=== PATIENT | female | born 1960 | race Caucasian/White ===

== ENCOUNTER → 2017-02-09 | Outpatient (CLI) | payer BC ==
[~2017-02-09] MED LIST: ACTNUNK; ASPCH81; CLTP PO; SIMV20TA2 PO
[2017-02-10 13:30] LABS: CHOLESTEROL/HDL RATIO 4.2
== END | disposition home or self-care (01) ==
LOC: C.LABPBG 11:17
PROVIDERS: ATTEND Family Medicine
DX: Z13.220 Encounter for screening for lipoid disorders (principal)

== ENCOUNTER → 2017-02-09 | Outpatient (CLI) | payer OTHER ==
--- NOTE | 2017-02-09 13:13 | DIAGNOSTIC IMAGING REPORT ---
R KNEE 1 OR 2 VIEWS ROUTINE CLINICAL HISTORY: M25.561 Right knee painM25.469 Knee [id number] pain COMPARISON: None. DISCUSSION: Considerable degenerative change of the medial joint compartment as well as patellofemoral compartment. Mild degenerative changes lateral compartment with moderate osteophytic change from the medial as well as the lateral femoral condyles. No significant joint effusion. No evidence for fracture or dislocation. There is no evidence for soft tissue swelling. IMPRESSION: Considerable degenerative change primarily of the medial and patellofemoral joint compartments. No acute process. The above report was generated using voice recognition software. It may contain grammatical, syntax or spelling errors. Electronically signed by: Blair Long M.D. 02/09/2017 1:11 PM Dictated Date/Time: 02/09/2017 1:11 PM
== END | disposition home or self-care (01) ==
LOC: C.RAD1850 12:58
PROVIDERS: ATTEND Family Medicine
DX: M25.469 Effusion, unspecified knee (principal); M25.561 Pain in right knee; M17.11 Unilateral primary osteoarthritis, right knee

== ENCOUNTER → 2017-03-13 | Outpatient (CLI) | payer OTHER ==
[2017-03-13 12:36] LABS: BASO % 0.4 %; BASO ABS # 0.02 K/uL (0-0.2); EOS % 0.4 %; EOS ABS # 0.02 K/uL (0-0.5); HEMATOCRIT 42.4 % (37-47); HEMOGLOBIN 13.9 g/dL (12.0-16.0); IG# 0.01 K/uL (0.00-0.02); LYMPH % 31.2 %; LYMPH ABS # 1.65 K/uL (1.2-3.4); MEAN CORPUSCULAR HEMOGLOBIN 30.5 pg (25-34); MEAN CORPUSCULAR HGB CONC 32.8 g/dl (32-36); MEAN PLATELET VOLUME 10.3 fL (7.4-10.4); MONO % 5.5 %; MONO ABS # 0.29 K/uL (0.11-0.59); NEUT % 62.3 %; PLATELET COUNT 300 K/uL (130-400); RED CELL DISTRIBUTION WIDTH CV 13.1 % (11.5-14.5); RED CELL DISTRIBUTION WIDTH SD 44.4 fL (36.4-46.3); WHITE BLOOD COUNT 5.29 K/uL (4.8-10.8)
== END | disposition home or self-care (01) ==
LOC: C.LABPBG 10:52
PROVIDERS: ATTEND Family Medicine
DX: R59.0 Localized enlarged lymph nodes (principal)

== ENCOUNTER → 2017-03-20 | Outpatient (CLI) | payer OTHER ==
--- NOTE | 2017-03-20 15:04 | MAMMOGRAPHY REPORT ---
THIS REPORT HAS BEEN AMENDED. BILATERAL DIGITAL SCREENING MAMMOGRAM TOMOSYNTHESIS WITH CAD: 03/20/2017 CLINICAL HISTORY: Routine screening. Patient has no complaints. TECHNIQUE: Breast tomosynthesis in addition to standard 2D mammography was performed. Current study was also evaluated with a Computer Aided Detection (CAD) system. COMPARISON: No prior exams were available for comparison. BREAST COMPOSITION: There are scattered areas of fibroglandular density in both breasts. FINDINGS: No suspicious mass, architectural distortion or cluster of microcalcifications is seen. IMPRESSION: ACR BI-RADS CATEGORY 1: NEGATIVE There is no mammographic evidence of malignancy. Prior outside mammograms are currently being reques brendan and if obtained they will be reviewed, compared to the current exam to assess for any more subtle changes, and an addendum will be made to this report. Otherwise, a 1 year screening mammogram is re commended. The patient will receive written notification of the results. Approximately 10% of breast cancers are not detected with mammography. A negative mammographic report should not delay biopsy if a clinically suggestive mass is present. Beatrice Bruno M.D. ay/:03/20/2017 13:35:35 Double Bottom Driver: Cindy VU(Alfred)(M), [facility] letter sent: Normal 02/14 BI-RADS Code: ACR BI-RADS Category 1: Negative AMENDMENT: 03/22/2017 Beatrice Bruno M.D. Prior outside mammograms from [place] dated 11/25/2008, 12/18/2009, 03/23/2011, 013, 05/30/2013, 06/03/2014 and 05/19/2015 became available for review. There has been no significan t interval change comparing to the prior outside mammograms. No new suspicious masses, calcification s, asymmetries or areas of architectural distortion are identified. Recommend routine screening mamm ography in one year. Amended BI-RADS: ACR BI-RADS Category 1: Negative letter sent: Normal 02/14
== END | disposition home or self-care (01) ==
LOC: C.MAMM 10:42
PROVIDERS: ATTEND Family Medicine
DX: Z12.31 Encounter for screening mammogram for malignant neoplasm of breast (principal); M85.89 Other specified disorders of bone density and structure, multiple sites

== ENCOUNTER 2024-01-23 08:39 | Observation (INO) ==
--- NOTE | 2023-12-27 11:53 | PAT Medication Instructions ---
Medication Instructions Date of Service December 27, 2023 Home Medications Medication Instructions Recorded metronidazole 0.75 % topical cream 1 applic topical DAILY #45 grams 03/31/23 aspirin 81 mg tablet,delayed release 81 mg PO HS calcium carbonate (Calcium 600) 600 mg PO BID cholecalciferol (vitamin D3) 50 mcg (2,000 unit) capsule 2,000 unit PO HS acetaminophen 650 mg tablet,extended release (Tylenol Arthritis Pain) 650 mg PO Q12H PRN Pain metronidazole 0.75 % topical cream 1 applic topical DAILY Azelaic Acid Cream 10 % topical DAILY atorvastatin 10 mg tablet (Lipitor) 10 mg PO HS ASK your prescriber and surgeon aspirin 81 mg tablet,delayed release 81 mg PO HS STOP taking 24 hours before surgery metronidazole 0.75 % topical cream 1 applic topical DAILY Azelaic Acid Cream 10 % topical DAILY DO NOT take the morning of surgery calcium carbonate (Calcium 600) 600 mg PO BID Take morning of surgery With a small sip of water, OTHERWISE NOTHING TO EAT OR DRINK AFTER MIDNIGHT: acetaminophen 650 mg tablet,extended release (Tylenol Arthritis Pain) 650 mg PO Q12H PRN Pain (if needed) Take evening before surgery calcium carbonate (Calcium 600) 600 mg PO BID cholecalciferol (vitamin D3) 50 mcg (2,000 unit) capsule 2,000 unit PO HS acetaminophen 650 mg tablet,extended release (Tylenol Arthritis Pain) 650 mg PO Q12H PRN Pain (if needed) atorvastatin 10 mg tablet (Lipitor) 10 mg PO HS Other Notes If you have any questions please call us at [phone] or [phone] or [phone] or [phone]
--- NOTE | 2024-01-02 09:50 | Anesthesiology Consultation ---
Date of Service January 02, 2024 Assessment & Plan (1) Encounter for pre-operative examination: Chart Review Chart Review: Acceptable Risk for Surgery and Patient seen in Pre Admission Testing Patient anxious about SAB/awareness- does want awareness with surgery if possible Family history of anesthesia issues- maternal 2nd cousin- slow to wake - was in ICU- immediate family had no issues with anesthesia. Specifics unknown when asked about possible pseudocholinesterase deficiency. Discussed with Dr. Funk- can proceed as scheduled - Patient not an ideal OPJ candidate (currently 23 hour obs) (anxiety/FH of blood clots) Per PAT appt on 01/02/24, no recent illness/disease exposures, illness related symptoms, or recent illness/disease positive tests. Will leave to surgeon's discretion if preop Covid testing needed Teaching & Discussion Pre-Anesthesia Teaching/Discussion Notes: Instructed NPO after midnight before surgery,except medications with 15 cc of water. Medication instructions provided according to the PAT guidelines. History Surgery Operation Date: 01/23/24 08:50 Proposed Procedures p Right Total Knee Arthroplasty - Ramon Sims MD Height/Weight Height: 5 ft 6 in Weight: 70.5 kg Allergies Allergy/AdvReac Type Severity Reaction Status Date / Time egg Allergy Intermediate Gastrointestinal Verified 12/26/23 14:37 Upset sulfite Allergy Intermediate Gastrointestinal Verified 12/26/23 14:37 Upset hydrocodone [From Vicodin] Allergy Mild Hives Verified 12/26/23 14:37 erythromycin base AdvReac Mild Gastrointestinal Verified 12/26/23 14:37 Upset seafood Allergy Severe Anaphylaxis Uncoded 12/26/23 14:37 Medications Home Medications Medication Instructions Recorded Confirmed Last Taken aspirin 81 mg tablet,delayed 81 mg PO HS 08/13/18 12/26/23 03/18/19 20:00 release calcium carbonate (Calcium 600) 600 mg PO BID 08/14/18 12/26/23 03/18/19 20:00 cholecalciferol (vitamin D3) 50 2,000 unit PO HS 03/04/19 12/26/23 03/18/19 20:00 mcg (2,000 unit) capsule acetaminophen 650 mg 650 mg PO Q12H PRN Pain 03/21/23 12/26/23 Unknown tablet,extended release (Tylenol Arthritis Pain) metronidazole 0.75 % topical cream 1 applic topical DAILY #45 grams 03/31/23 12/26/23 Unknown Azelaic Acid Cream 10 % topical DAILY 12/26/23 12/26/23 Unknown atorvastatin 10 mg tablet (Lipitor) 10 mg PO HS 12/26/23 12/26/23 Unknown Past Medical History Medical History (Updated 01/03/24 @ 11:02 by Louise Smith PA-C) Anxiety Cataracts, bilateral Diverticular disease no hospitalizations ; no recent flares DJD (degenerative joint disease) Family history of adverse effect to anesthesia maternal 2nd cousin- slow to wake - was in ICU- immediate family had no issues with anesthesia GERD (gastroesophageal reflux disease) well controlled and stable Hx of irritable bowel syndrome pt denies any issues at this time - feels it is more GERD related Hx of migraines ocular Hyperlipidemia Osteoarthritis of right knee Osteoporosis PONV (postoperative nausea and vomiting) Prothrombin gene mutation 81mg aspirin - 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- plans to start Xarelto post op no personal hx of DVT/PE Rosacea PCP monitors Thyroid nodule pcp monitoring - stable in size (biopsied around 2018- benign) Exercise / Class Metabolic Activity II 4-5 Yardwork/Stairs/Walk up hill (one flight of stairs - no chest pain or SOB) Past Family History Family History Sister Breast cancer Mother Hypertension Father Hypertension Family history of diabetes mellitus Grandmother (Maternal) Family history of reaction to anesthesia difficulty waking Family/Other Family history of reaction to anesthesia 1st cousin difficulty waking Past Surgical History Surgical History H/O section x3 History of wisdom tooth extraction Hx of colonoscopy with polypectomy Status post biopsy of thyroid gland benign - pcp monitoring Past Anesthesia History No Hx of Anesthesia Complications (with exception to PONV ) and No Family Hx of Anesthesia Complications (with exception maternal 2nd cousin- slow to wake - was in ICU- immediate family had no issues with anesthesia ) History of PONV History of PONV and Hx of Motion Sickness (mild) Social History Smoking Status: Never smoker Do You Dip or Chew Tobacco: No Hx Alcohol Use: Yes Alcohol type: beer alcohol intake frequency: a few times a month Hx Substance Use: No substance use type: does not use Review of Systems - Cough- several days- post nasal drip. - Hx of snoring- no recent issue with weight loss- no hx of sleep study Patient denies chest pain, shortness of breath, dyspnea on exertion, wheezing, palpitations. No hx of seizures, stroke, MS. No hx of blood clots or blood transfusions Physical Exam Vital Signs VITALS BP 128/72 P 72 TEMP 97.8 SP02 97% RESP 16 Constitutional no acute distress ENMT Mouth: no TMJ clicking Thyromental Distance: > or= 3.5 Finger Breadths (3.5) Mallampati Class: III Crowns to molars Neck neck extension not limited Respiratory normal respiratory effort; no respiratory distress Auscultation: lungs clear to auscultation bilaterally; no wheezes Cardiovascular Rate/Rhythm: regular rate and regular rhythm Heart Sounds: no murmur Vessels: no carotid bruit Musculoskeletal Spine: no pain with cervical ROM Extremities: extremities normal to inspection Psychiatric Orientation: alert Lab Results Anesthesia Preop Results Results Anesthesia Widget: WBC 5.97 K/ul (4.8-10.8) 01/02/24 Hgb 12.5 g/dl (12.0-16.0) 01/02/24 Hct 38.1 % (37.0-47.0) 01/02/24 Plt 286 K/uL (130-400) 01/02/24 Na 138 mmol/L (136-145) 01/02/24 K 4.4 mmol/L (3.5-5.1) 01/02/24 Cl 104 mmol/L (98-107) 01/02/24 CO2 26 mmol/L (21-32) 01/02/24 BUN 14 mg/dl (6-23) 01/02/24 Creat 0.94 mg/dl (0.6-1.2) 01/02/24 Glucose Level 81 mg/dl (70-99(Fasting)) 01/02/24 PT 10.4 Seconds (9.0-12.0) 01/02/24 PTT 26 Seconds (21-31) 01/02/24 INR 1.0 (0.9-1.1) 01/02/24 Blood Type A Positive 01/02/24 Antibody Screen NEGATIVE 01/02/24 Testing Electrocardiogram Date: 01/02/24 Findings: + NSR @ (66bpm) Nonspecific ST and T wave abnormality Chest X-Ray Date: 01/02/24 Findings: + NAD
--- NOTE | 2024-01-20 10:29 | History & Physical Report ---
Date of Service January 20, 2024 Assessment & Plan (1) Degenerative arthritis of knee, bilateral: 63-year-old female with prothrombin gene mutation with advanced bilateral knee DJD right side more symptomatic than the left. She is failed conservative measures and rate have her right knee replaced. Plan for him to take her to the operating do a right total knee replacement but the risks and benefits of this procedure were explained. With her prothrombin gene mutation she is at increased risk of DVT and PE. Will be aggressive as far as anticoagulation starting 24 hours postop with Xarelto. Will do this for 1 month. She is otherwise can be plan on being discharged to home and do home PT for 2 weeks then likely outpatient after that. (2) Hyperlipidemia: (3) Irritable bowel syndrome: (4) Osteoporosis: (5) Prothrombin gene mutation: History of Present Illness Chief Complaint: . Persistent, progressive right knee pain and discomfort. Primary Care Provider: Debby Garcia MD . The patient is a 63-year-old female who we have been following for the past 5 years or so for advanced right knee DJD. She has been through extensive conservative treatment over the years which would become less successful. She has some periods where she has trouble walking due to the severe pain. Describes global pain. The more she is up and on her knee the more it hurts. She is having more bad days and good days. She is ready to have her knee fixed. The patient does have a clotting disorder with prothrombin gene mutation. Will be more aggressive with her anticoagulation and likely using Xarelto for 1 month postop. She denies any history of DVT or PE in the past. Allergies Allergy/AdvReac Type Severity Reaction Status Date / Time egg Allergy Intermediate Gastrointestinal Verified 12/26/23 14:37 Upset sulfite Allergy Intermediate Gastrointestinal Verified 12/26/23 14:37 Upset hydrocodone [From Vicodin] Allergy Mild Hives Verified 12/26/23 14:37 erythromycin base AdvReac Mild Gastrointestinal Verified 12/26/23 14:37 Upset seafood Allergy Severe Anaphylaxis Uncoded 12/26/23 14:37 Home Medications Medication Instructions Recorded Confirmed Type aspirin 81 mg tablet,delayed 81 mg PO HS 08/13/18 12/26/23 History release calcium carbonate (Calcium 600) 600 mg PO BID 08/14/18 12/26/23 History cholecalciferol (vitamin D3) 50 2,000 unit PO HS 03/04/19 12/26/23 History mcg (2,000 unit) capsule acetaminophen 650 mg 650 mg PO Q12H PRN Pain 03/21/23 12/26/23 History tablet,extended release (Tylenol Arthritis Pain) metronidazole 0.75 % topical cream 1 applic topical DAILY #45 grams 03/31/23 12/26/23 Rx Azelaic Acid Cream 10 % topical DAILY 12/26/23 12/26/23 History atorvastatin 10 mg tablet (Lipitor) 10 mg PO HS 12/26/23 12/26/23 History Past Med/Surg History Problem List Encounter for pre-operative examination Degenerative arthritis of knee, bilateral Degenerative disc disease (Chronic) Thyroid nodule (Chronic) Ocular migraine Osteoarthritis of right knee (Chronic) Anxiety (Chronic) Hyperlipidemia (Chronic) Irritable bowel syndrome (Chronic) Osteoporosis (Chronic) Prothrombin gene mutation (Chronic) Rosacea (Chronic) Medical History Family history of adverse effect to anesthesia maternal 2nd cousin- slow to wake - was in ICU- immediate family had no issues with anesthesia PONV (postoperative nausea and vomiting) Diverticular disease no hospitalizations ; no recent flares GERD (gastroesophageal reflux disease) well controlled and stable Cataracts, bilateral Anxiety Thyroid nodule pcp monitoring - stable in size (biopsied around 2018- benign) Prothrombin gene mutation 81mg aspirin - 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- plans to start Xarelto post op no personal hx of DVT/PE Hx of migraines ocular Hx of irritable bowel syndrome pt denies any issues at this time - feels it is more GERD related Osteoporosis Osteoarthritis of right knee Hyperlipidemia DJD (degenerative joint disease) Rosacea PCP monitors Surgical History Hx of colonoscopy with polypectomy History of wisdom tooth extraction Status post biopsy of thyroid gland benign - pcp monitoring H/O section x3 Family History Sister Breast cancer Mother Hypertension Father Hypertension Family history of diabetes mellitus Grandmother (Maternal) Family history of reaction to anesthesia difficulty waking Family/Other Family history of reaction to anesthesia 1st cousin difficulty waking Social History Smoking Status: Never smoker Second Hand Exposure: No; Do You Dip or Chew Tobacco: No; Hx Alcohol Use: Yes Alcohol type: beer Hx Substance Use: No Preferred Language: Trinidadian Communication Ability: Effective Visual Impairment: No Limitations Hearing Ability: Normal Creative Resource Manager Required: No Beliefs That Will Affect Care: None marital status: Current Living Situation: Spouse current occupational status: retired Feels Safe at Home: Yes Dental Care, Regularly: Yes Physical Activity Frequency: Does not Exercise Physical Activity Frequency Comment: d/t knee pain Assistive Devices: Cane and Glasses Review of Systems All systems reviewed & are unremarkable except as noted in HPI & below. Physical Exam . Physical examination was a pleasant healthy middle-aged female. Looks in good health. Examination of the right knee reveal patient ambulates independently. She clearly limps on the right side and is got varus alignment to the knee with a bit of a varus thrust with weightbearing. She has bony hypertrophy medially. Range of motion about 10 degrees short of full extension to 110 degrees of flexion. No particular pain with hip motion. She is neurologically intact. Constitutional WD/WN, vitals as above Respiratory normal respiratory effort, lungs clear to auscultation Cardiovascular RRR, no murmur, no edema Gastrointestinal (Abdomen) normal bowel sounds, soft, nontender, no hepatosplenomegaly Results & Data Results & Data Laboratory Results . Diagnostic Findings . X-rays of the knee were reviewed. Shows advanced medial compartment arthritis. She got complete loss of medial joint space. Because she got osteophytes medially and some fairly large posterior osteophytes as well. She has tricompartment disease. PG Care Time/CCT Total # of Minutes Spent Total Time Spent with Patient: Total time spent is greater than 50% in coordination of care (as documented) at patient's floor/unit and/or counseling patient: Coding Level of Care Code None Diagnoses Degenerative arthritis of knee, bilateral M17.0 Hyperlipidemia E78.5 Irritable bowel syndrome K58.9 Osteoporosis M81.0 Prothrombin gene mutation D68.52
[~2024-01-23 08:39] MED LIST changes: -ACTNUNK; -ASPCH81; -CLTP PO; +ROPIVACAINE 0.5% 5 MG/ML 30 ML VIAL ONE; -SIMV20TA2 PO
--- NOTE | 2024-01-23 09:03 | History & Physical Bridge Note ---
Date of Service January 23, 2024 History & Physical Bridge Note I have examined the patient, reviewed the History & Physical and in the interval since the performance of the History & Physical I have noted the following changes of clinical significance: no changes noted
[2024-01-23] MEDS: ACETAMINOPHEN 500 MG TAB PO SCH ×2 (09:17→14:19)
[2024-01-23] MEDS: CeleBREX 200 MG CAP PO SCH (09:18)
[2024-01-23] MEDS: FAMOTIDINE 20 MG TAB PO SCH (09:19)
[2024-01-23] MEDS: SODIUM CHLORIDE 0.9% 1,000 ML IV SCH (09:19)
[2024-01-23] MEDS: METOCLOPRAMIDE HCL 10 MG TABLET PO SCH (09:19)
[2024-01-23] MEDS ORDERED: LIDOCAINE 2% 2 ML VIAL/AMP(20MG/ML) INFIL ONE (09:49)
[2024-01-23] MEDS ORDERED: PROPOFOL IV EMULSION 10 MG/ML 20 ML VIAL IV ONE ×2 (09:53→12:31)
[2024-01-23] MEDS ORDERED: MIDAZOLAM HCL 1 MG/ML 2ML VIAL ONE ×2 (10:04→12:23)
[2024-01-23] MEDS ORDERED: ePHEDrine sulfate 50 MG/ML AMP IV PRN (10:30)
[2024-01-23] MEDS ORDERED: fentaNYL citrate PF 100 MCG/2 ML VIAL IV PRN (10:30)
[2024-01-23] MEDS ORDERED: ATROPINE SULFATE 0.1 MG/ML 10ML SYR IV PRN (10:30)
[2024-01-23] MEDS ORDERED: ONDANSETRON INJ 2 MG/ML 2 ML VIAL IV PRN ×2 (10:30→14:00)
[2024-01-23] MEDS ORDERED: HYDROmorphone INJ 1 MG/ML SYRINGE IV PRN (10:30)
[2024-01-23] MEDS: ceFAZolin 2000MG 2,000 MG/15 ML SYR IV SCH (11:28)
[2024-01-23] MEDS ORDERED: fentaNYL citrate PF 100 MCG/2 ML VIAL ONE (11:50)
[2024-01-23] MEDS ORDERED: ePHEDrine sulfate 50 MG/5 ML SYR ONE (11:58)
[2024-01-23] MEDS: ORTHO JOINT ANESTHETIC ONE (11:59)
[2024-01-23] MEDS: ROPIV 0.5% 246mg, Ketorolac 30mg, EPINEPHrine 0.5mg in NSS INFIL SCH (12:14)
[2024-01-23] MEDS: TRANEXAMIC ACID 1,000 MG **IV Intra-op IV SCH (12:15)
--- NOTE | 2024-01-23 13:17 | Operative Report ---
PG Post Operative Report Pre & Post Diagnosis Operation Date: 01/23/24 10:40 Pre-Op Diagnosis: Right Knee Degenerative Joint Disease Post-Op Diagnosis: Right Knee Degenerative Joint Disease I identified the patient and participated in the time-out.: Yes Procedure Operation Date: 01/23/24 10:40 Actual Procedures p Right Total Knee Arthroplasty(Right) - Ramon Sims MD Surgeon Ramon Sims MD Gas Or Water Meter Installer Serafin Baez PA-C Estimated Blood Loss 50 Findings Consistent with Post-Op Diagnosis Operative findings were advanced right knee tricompartment DJD. She had grade 4 [id number] disease in all 3 compartments most severe medially. She had osteophytes throughout with large posterior osteophytes. Very stiff knee preoperatively with only about 90 degrees of knee flexion. Specimens Right knee sent for pathology. Anesthesia Type Spinal MAC Complications none Disposition Accompanied Patient To Recovery: No Indications The patient is a 63-year-old female whose had a long history of gradual progres sive increasing right knee pain discomfort. We have been following her for years with injection of the throat became less successful over time. X-rays show severe knee arthritis. She developed progressive stiffness in her knee. She elected proceed with total knee arthroplasty. Description of Procedure Operative implants consist of: 1. Biomet Vanguard size 65 right posterior stabilized femoral component. 2. Biomet size 67 tibial tray. 3. 10 mm posterior Byce polyethylene insert. 4. 31 x 8 all poly patella. The patient was taken the operating, identified, placed on the operating table in the supine position. All conductors were appropriately padded. IV antibiotics fibra anesthesia team. A spinal anesthetic and adductor canal block had been provided in the holding area. A Coates catheter was placed in sterile fashion. Right Tetrick was then placed for the right lower extremity was then prepped and draped in usual sterile fashion. The right leg was elevated exsanguinated with use of an Esmarch and the tourniquet was placed at 300 mmHg. An anterior approach to the right knee was then performed to longitudinal incision centered over the patella. Sharp dissection was carried through subcutaneous tissue down the extensor mechanism. A medial parapatellar arthrotomy incision was made. Some subperiosteal dissection was carried out medially. The fat pad was resected from Neath patella tendon. The lateral patellofemoral ligament was released. Patella subluxate laterally knee was flexed with the osteophytes taken on distal femur. ACL and PCL were then released to the distal femur and the tibia subluxated anteriorly. The external tibial alignment jig was then placed on the anterior face the tibia and adjusted 14 mm medially. Proximal tibial cut was made remove out of millimeter bone from the most efficient aspect medial tibial plateau. The tibia was then sized to a size 67. Attention drawn the femur. The distal femur termed a sharp drop with intramedullary canal was suction. A right 5 degree valgus cutting guide was placed. The distal femoral cutting block was pinned in place. This femoral cut was made take an additional 3 mm of bone off distal femur. The femur was then sized to a size 67.5. The AP cutting block was pinned parallel to the epicondylar axis which was 3 degrees of external rotation. The anterior cut, anterior chamfer, posterior cut, posterior chamfer cuts were made. The box cutting guide was then placed. The 67 have boxcar was extremely loose so we placed a 65 and it fit nicely. The box cut was used to create the defect for the post. The posterior osteophytes were taken off the posterior perspective the femur. The menisci were excised. The trial femoral component was placed. The tibial tray was pinned Maria external rotation and the drill and stem punch used. Defect in proximal tibia for the tibial tray. Knee was then trialed and 10 mm insert fit most appropriately. Attention drawn the patella. The patella was cleaned of all soft tissues. Patella thickness measured 20 mm in thickness was cut down to 13. Was sized to a size 31 patella. The lug holes were drilled for 31 patella. The lateral osteophytes removed. Patella button was placed. Knee was taken through range of motion and the patella tracked nicely with no thumbs test. Attention was then drawn toward placing the permanent components. All trial components were removed. Bone plug was placed into this femur limit blood loss. Double batch Pal[place]os G cement was mixed. Biomet QBInternationalguard size 65 right posterior stabilized femoral component, size 67 tibial tray, a 10 mm posterior Byce polyethylene insert, and a 31 x 8 all poly patella then cemented in place. The knee was brought out into full extension till cement hardened. Final cement check was then performed. The pericapsular tissues were injected with total of 100 cc of Ortho mix. Patient did receive 1 g of tranexamic acid. The tourniquet was then let down for final tourniquet time 54 minutes. Hemostasis assured use electrocautery. Extensor Meclomen closed with combination 1 PDS suture #1 Vicryl suture in a [id number] fashion. Extensor mechanism checked and found to be intact and subcutaneous tissues then closed with 2 Dexon suture in buried interrupted fashion skin was closed skin sis. Leg was then cleaned and dried and sterile dressed with Xeroform, 4 fours, sterile cast padding, Taj bandage were applied. Patient then transferred to the recovery room in stable condition. The patient tolerated procedure well and there were no complications. Serafin Baez, my physician pharmaceutical assistant, was present for the entire procedure. His assistance was essential and required for appropriate patient positioning, prepping and draping, surgical exposure, performing the technical details of the operation, placement the implants, closure of the wound, and placement of the sterile bandage. I attest to the content of the Intraoperative Record and any orders documented therein. Any exceptions are noted below.
--- NOTE | 2024-01-23 13:51 | XRay Report ---
XR knee RT 1 or 2V routine CLINICAL HISTORY: Surgical Post Op TECHNIQUE: 2 views of the right knee were obtained. Comparison: Comparison is made to knee radiographs 02/01/2017 FINDINGS: Patient is status post total knee arthroplasty with expected postsurgical changes including soft tiss ue swelling and subcutaneous emphysema. No periarticular lucency or hardware fracture is seen. IMPRESSION: Expected postoperative appearance status post placement of total knee arthroplasty. ACT 112: Negative or not required by law. Electronically signed by: Antonio Suarez M.D. 01/23/2024 1:49 PM
[2024-01-23] MEDS ORDERED: ALUMINUM/MAGNESIUM SUSP 30 ML UDC PO PRN (14:00)
[2024-01-23] MEDS ORDERED: METOCLOPRAMIDE HCL INJ 5 MG/ML 2 ML VIAL IV PRN (14:00)
[2024-01-23] MEDS ORDERED: bisacodyL 10 MG SUPP PR PRN (14:00)
[2024-01-23] MEDS ORDERED: MAGNESIUM HYDROXIDE SUSP 30 ML UDC PO PRN (14:00)
[2024-01-23] MEDS ORDERED: NALOXONE HCL 0.4 MG/1 ML VIAL/CARP IV PRN (14:00)
[2024-01-23] MEDS ORDERED: HYDROmorphone INJ 0.5 MG/0.5 ML SYR IV PRN (14:00)
[2024-01-23] MEDS: KETOROLAC TROMETHAMINE 15 MG/ML VIAL IV SCH (14:19)
[2024-01-23] MEDS: LR 500ML BOLUS, THEN 15ML/HR IV SCH (15:36)
[2024-01-23] MEDS: LR 60ML/HR IV SCH (15:37)
[2024-01-23] MEDS: ASCORBIC ACID 500 MG TAB PO SCH (16:56)
[2024-01-23] MEDS: TRANEXAMIC ACID / 0.7% NACL 1,000 MG/100 ML BAG IV SCH (18:03)
[2024-01-23] MEDS: ceFAZolin 1000MG 1,000 MG/7.5 ML SYR IV SCH (18:03)
--- NOTE | 2024-01-23 20:31 | Anesthesiology Progress Note ---
Date of Service January 23, 2024 Anesthesia Post Procedure Vital Signs Vital Signs: Temp Pulse Pulse Resp BP Pulse Ox O2 Del Method 01/23/24 19:17 36.5 C 71 16 115/77 99 Room Air 01/23/24 16:54 65 18 115/72 100 Room Air 01/23/24 15:53 36.5 C 64 20 113/68 100 Room Air 01/23/24 14:50 36.7 C 66 20 105/69 100 Room Air 01/23/24 14:17 72 20 106/67 99 Room Air 01/23/24 13:50 36.4 C L 68 18 114/69 100 Room Air 01/23/24 13:40 69 20 117/60 99 Room Air 01/23/24 13:30 36.4 C L 67 14 114/62 98 Room Air 01/23/24 13:20 62 17 120/62 100 Oxymask 01/23/24 13:10 36.7 C 71 15 123/60 100 Oxymask 01/23/24 09:07 36.7 C 73 18 162/78 H 100 Room Air O2 Flow Rate 01/23/24 19:17 01/23/24 16:54 01/23/24 15:53 01/23/24 14:50 01/23/24 14:17 01/23/24 13:50 01/23/24 13:40 01/23/24 13:30 01/23/24 13:20 6 01/23/24 13:10 6 01/23/24 09:07 Transfer of Care Handoff Completed per policy Notes Mental Status: alert / awake / arousable and participated in evaluation Patient Amnestic to Procedure: Yes Nausea / Vomiting: adequately controlled Pain: adequately controlled Airway Patency, RR, SpO2: stable & adequate BP & HR: stable & adequate Hydration State: stable & adequate Neuraxial Anesthesia: was administered and sensory block is resolving Anesthetic Complications: no major complications apparent and Pt Satisfied with anesthetic care
[2024-01-23] MEDS: ASPIRIN 81 MG ECTAB PO SCH (21:00)
[2024-01-23] MEDS: ATORVASTATIN 10 MG TAB PO SCH (21:01)
[2024-01-23] MEDS: CHOLECALCIFEROL 25 MCG (1000 UNITS) TAB PO SCH (21:01)
[2024-01-23] MEDS: DOCUSATE SODIUM 100 MG CAP PO SCH (21:01)
[2024-01-23] MEDS: CALCIUM CARBONATE 1250MG TAB PO SCH (21:01)
[2024-01-23] MEDS: SENNA 8.6 MG TAB PO SCH ×2 (21:01)
[2024-01-24] MEDS: dexAMETHasone 10 MG in SYRINGE 0 ML IV SCH (07:25)
[2024-01-24] MEDS: MULTIVITAMIN TAB PO SCH (07:26)
[2024-01-24 07:51] LABS: Hematocrit (blood only) 31.3 % (37.0-47.0); Hemoglobin 10.2 g/dl (12.0-16.0); Mean Corpuscular Hemoglobin 30.4 pg (25.0-34.0); Mean Corpuscular Hgb Conc 32.6 g/dL (32.0-36.0); Mean Corpuscular Volume 93.2 fL (80.0-100.0); Mean Platelet Volume 9.7 fL (9.4-12.4); Platelet Count 232 K/uL (130-400); RDW Standard Deviation 44.2 fL (36.4-46.3); Red Blood Count 3.36 M/uL (4.20-5.40); White Blood Count 5.78 K/ul (4.8-10.8)
[2024-01-24 08:35] LABS: Calcium 9.1 mg/dl (8.6-10.3); Potassium 4.1 mmol/L (3.5-5.1)
[2024-01-24 08:41] LABS: BUN Creatinine Ratio 18.8 (10-20); Creatinine Clr Calc Pharmacy 61.8 ml/min
[2024-01-24] MEDS: oxyCODONE HCL IR 5 MG TAB (IMMEDIATE RELEASE) PO PRN (09:25)
--- NOTE | 2024-01-24 10:43 | Orthopedic Progress Note ---
Date of Service January 24, 2024 Assessment & Plan (1) Status post right knee replacement: Plan: 63-year-old female postop day 1 from right knee replacement. She does have an underlying prothrombin gene issue and therefore increased risk of thrombosis. Will going to start her on Xarelto 24 hours postop prophylactically to prevent thrombosis. Her pain is controlled. She is neurologically intact. Plan: 1. DVT prophylaxis including thigh-high teds, SCDs, Xarelto to start 24 hours postop. 2. PT/OT. Weight-bear as tolerated right total knee protocol. 3. Pain control doing okay with current pain regimen. 4. Disposition plan is to discharge her to home with some home health after therapy today. (2) Prothrombin gene mutation: Admission and Anticipated Discharge Date Admission Date: January 23, 2024 Subjective 63-year-old female postop day 1 from a right knee replacement. She is doing pretty well. Pains been controlled. Had a pretty good night. No chest pain or shortness of breath. Not feeling dizzy or lightheaded. Hoping to go home today. Physical Exam Physical Exam: Physical examination is a pleasant middle-aged female. As she is lying in bed looks quite comfortable. Examination of the right leg reveals leg to be well aligned. Dressings clean dry and intact. She can dorsiflex and plantarflex her foot appropriately. She is neurologically intact. Respiratory: normal respiratory effort, lungs clear to auscultation Cardiovascular: RRR, no murmur, no edema Gastrointestinal (Abdomen): normal bowel sounds, soft, nontender, no hepatosplenomegaly Results & Data Vital Signs (Past 12 Hours) Vital Signs Temp Pulse Pulse Resp BP BP Pulse Ox 01/24/24 07:53 36.7 C 66 12 146/77 H 100 01/24/24 02:04 36.5 C 57 L 20 114/70 91 01/23/24 23:02 36.6 C 66 16 126/87 99 O2 Del Method 01/24/24 07:53 Room Air 01/24/24 02:04 Room Air 01/23/24 23:02 Room Air Laboratory Results Hemoglobin is 10.2. Hematocrit is 31.3. Electrolytes are stable.
[2024-01-24] MEDS: RIVAROXABAN 10 MG TABLET PO SCH (12:02)
--- NOTE | 2024-01-26 07:43 | Discharge Summary ---
Date of Service January 26, 2024 Admission HPI (Per Admitting) . The patient is a 63-year-old female who we have been following for the past 5 years or so for advanced right knee DJD. She has been through extensive conservative treatment over the years which would become less successful. She has some periods where she has trouble walking due to the severe pain. Describes global pain. The more she is up and on her knee the more it hurts. She is having more bad days and good days. She is ready to have her knee fixed. The patient does have a clotting disorder with prothrombin gene mutation. Will be more aggressive with her anticoagulation and likely using Xarelto for 1 month postop. She denies any history of DVT or PE in the past. Admission Exam (Per Admitting) . Physical examination was a pleasant healthy middle-aged female. Looks in good health. Examination of the right knee reveal patient ambulates independently. She clearly limps on the right side and is got varus alignment to the knee with a bit of a varus thrust with weightbearing. She has bony hypertrophy medially. Range of motion about 10 degrees short of full extension to 110 degrees of flexion. No particular pain with hip motion. She is neurologically intact. Principal Diagnosis Same as "Discharge Diagnosis" noted below under Discharge Instructions. Discharge Data Procedures Performed Operation Date: 01/23/24 10:40 Actual Procedures p Right Total Knee Arthroplasty(Right) - Ramon Sims MD Ordered Studies 01/23/24 05:00 US - OR guided needle placemen Routine Hospital Course (1) Status post right knee replacement: This is a 63 year old patient admitted on 01/23/24 and underwent total knee arthroplasty. She tolerated the procedure well and there were no complications. Transferred to the PACU post op and later to the orthopedic floor for further care. She was given ancef for antibiotic prophylaxis. She was also given NYASIA stockings, SCDs, and xarelto for DVT prophylaxis. Hemoglobin, hematocrit, and vital signs were monitored during her hospital stay and remained stable. Did not require any blood transfusions. There were no complications during her hospital stay. By post op day #1 the patient was tolerating a regular diet, pain was reasonably controlled with oral pain medicine, and she was participating in physical therapy. On post op day #1 the patient was discharged home and set up with home health care. She was given printed discharge instructions including prescriptions for extra strength tylenol, cefadroxil, zofran, senokot, oxycodone, and xarelto. Continue physical therapy, weight bearing as tolerated. Continue NYASIA stockings. Follow up approximately 2 weeks post op or sooner if there are problems or concerns. PG Care Time/CCT Total # of Minutes Spent Total Time Spent with Patient: : Discharge Plan Discharge Items Patient Disposition: Home - Home Health Services Reason For Visit: Right Knee Osteoarthritis Discharge Diagnosis: Right Knee Replacement Activity: Per Instructions section Weightbearing: Full weightbearing Non-emergency contact: Surgeon Call non-emergency contact if: you have any medication questions Follow-up/Referrals: Debby Garcia MD [Primary Care Provider] - Diet: Regular Addtl Attending Provider Instructions: ACTIVITY RECOMMENDATIONS: Diet: * You may resume previous diet. Physical Therapy: * You will go to physical therapy three times each week for four to six weeks after your surgery in order to regain your knee range of motion and to retrain your knee to work properly. * It is just as important to make sure you are getting your knee perfectly straight as it is to regain your knee bend. * Taking a pain pill an hour before therapy can help you have a more productive and comfortable therapy session. Home Exercise: * You were shown a series of exercises (heel props, heel slides, etc.) in the hospital. Do these exercises three to four times each day including the exercises you were shown in physical therapy. Walking: * Get up and walk several times each day. For the first four weeks, try not to stand or walk for more than one hour at a time. If you do stand or walk for more than one hour, you will not hurt anything, but your knee and leg will likely swell. * As you feel comfortable, you may change from the walker or crutches to a cane and then to independent walking. MEDICATIONS: New Medicine: * You will likely be taking one or more of these medications: 1. Oxycodone - A quick and shorter-acting pain medication. Take one to two tablets every six hours to lessen your pain. 2. Xarelto - Thins your blood to lessen the chance of forming a blood clot. * The most common side effects of pain medicine and iron are nausea and constipation. If nausea or constipation is too much of a problem or if you have any questions about your new medicines or doses, call [facility] at . We will try to help you manage these issues. "VERY IMPORTANT TO READ AND REVIEW" Pain: * The immediate post-operative period after knee replacement surgery is often quite painful. * You are given a prescription for pain medicine. You should take it, as directed, when you need it, especially before physical therapy and before going to bed. Pain that interferes with sleep is very common and can last several months. * You will likely need pain medicine for the first four to six weeks. It will not stop all of the pain. The pain will lessen and as you feel better, you may change to milder pain medicine such as Tylenol. * The most common side effects of pain medicine are nausea and constipation, so don't take more than you need. SPECIAL CARE INSTRUCTIONS: TEDs/Elastic Stockings: * The white elastic stockings help limit swelling and prevent blood clots from forming in your legs. The more you wear them, the more they work. * Wear them for six weeks after knee replacement surgery and four weeks after partial knee replacement. Incision Site Care: * Remove dressing postoperative day 2 and then shower. Keep direct shower pressure off the incision site. * After showering, cover sis with dry gauze and change daily or more frequently if the dressing is getting saturated with drainage. * Use the NYASIA stockings to hold dressing in place. DO NOT apply tape on the skin. * May completely stop using bandage if wound is dry and no drainage * Sis are removed between 2 and 3 weeks post-op. If your follow-up appointment is made before 2 weeks, please have your appointment re- scheduled. It is too early to remove the sis. Prevention of Infection: * Take antibiotics one hour before any dental cleaning, dental work, urological procedure, gastrointestinal procedure or any invasive surgery in order to prevent your new joint from getting infected. * You may get the antibiotics from the doctor performing the procedure or you may call our office at [phone] before and we will call in a prescription to the pharmacy of your choice. Things to Watch For: * Drainage from the incision site that occurs more than one week after your surgery. * Severely increased knee/leg pain or swelling. * Increased redness at the incision site. * Fever above 102 degrees Fahrenheit. * Unusual chest pain or shortness of breath. * Unusual pain or burning with urination. Call [facility] at [phone] with any of the above problems or if you have any questions about your medicines or recovery. FOLLOW UP VISIT: Make an appointment to see your doctor for approximately two weeks after surgery for a progress check and staple removal by calling the office at [phone]. Pending Studies at Discharge: No Stand-Alone Forms: My [facility], Smoking Cessation Medications and DC Order Prescriptions: Continued metronidazole 0.75 % cream 1 applic topical DAILY Qty: 45 1RF oxycodone 5 mg tablet 5 mg PO Q6 PRN (Reason: pain) Qty: 30 0RF Rx Instructions: Take as needed for pain ondansetron 4 mg tablet,disintegrating 4 mg PO Q8 PRN (Reason: nausea) Qty: 20 1RF Rx Instructions: Take as needed for nausea sennosides [Senokot] 8.6 mg tablet 8.6 mg PO BID 14 Days Qty: 28 0RF Rx Instructions: Take two times a day to prevent/treat constipation acetaminophen [Tylenol Extra Strength] 500 mg tablet 1,000 mg PO TID 30 Days Qty: 180 0RF Rx Instructions: Take as needed for Pain. cefadroxil 500 mg capsule 500 mg PO BID 7 Days Qty: 14 0RF Rx Instructions: Take 1 cap twice a day to prevent infection Xarelto 10 mg tablet 10 mg PO DAILY 30 Days Qty: 30 0RF Rx Instructions: Take 1 tablet daily for 30 days to prevent blood clots cholecalciferol (vitamin D3) 50 mcg (2,000 unit) capsule 2,000 unit PO HS aspirin 81 mg tablet,delayed release (DR/EC) 81 mg PO HS calcium carbonate [Calcium 600] 600 mg calcium (1,500 mg) tablet 600 mg PO BID Azelaic Acid Cream 10 % topical DAILY atorvastatin [Lipitor] 10 mg tablet 10 mg PO HS Discontinued acetaminophen [Tylenol Arthritis Pain] 650 mg tablet extended release 650 mg PO Q12H PRN (Reason: Pain) Krames/Other Patient Handouts: Knee Replace Recovery Admission Data Admit Date/Time: 01/23/24 13:10 Attending Provider: Ramon Sims Admit Provider: Ramon Sims Primary Care Provider: Debby Garcia Other Providers: Wilfrid,Home Health Other Interventions: Discharge Summary Assessment (RN) Last Done: 01/24/24 10:52
== END 2024-01-24 12:11 | disposition home health service (06) ==
LOC: 3E 08:39 → ASU 08:39